=== PATIENT | female | born 1955 | race African-American/Black ===

== ENCOUNTER 2018-12-30 03:42 | Inpatient (IN) | payer OTHER ==
[~2018-12-30] VITALS: Ht 152.4 cm; Wt 111.0 kg
[2018-12-30 03:44] VITALS: BP 225/86
[2018-12-30 04:55] LABS: ABSOLUTE NEUTROPHILS 11.4 thou/uL (1.4-8.2); BASOPHILS 1.1 % (0.0-2.0); EOSINOPHILS 3.8 % (0.0-3.0); HEMATOCRIT 33.1 % (37.0-47.0); HEMOGLOBIN 10.8 gm/dL (12.0-15.0); LYMPHOCYTES 18.9 % (24.0-44.0); MCHC 32.5 % (28.0-37.0); MCV 92.3 fL (80.0-100.0); MONOCYTES 4.1 % (1.0-8.0); PLATELET COUNT 368 thou/uL (150-400); POLYS 72.1 % (36.0-66.0); RBC 3.59 mil/uL (4.20-5.00); RDW 17.8 % (10.5-14.5); WBC 15.7 thou/uL (4.0-11.0)
[2018-12-30 04:56] LABS: CALCIUM 8.7 mg/dL (8.5-10.1); POTASSIUM 4.5 mmol/L (3.5-5.1)
[2018-12-30 04:57] LABS: TROPONIN-I 0.06 ng/mL (<0.06)
[2018-12-30 06:08] VITALS: BP 166/66
[2018-12-30] MEDS ORDERED: LIPITOR80 MG PO (07:33)
[2018-12-30] MEDS ORDERED: DIFLUCAN200 MG PO (07:34)
[2018-12-30] MEDS ORDERED: NEURONTIN 300300 M1 PO (07:34)
[2018-12-30] MEDS ORDERED: LEVEMIR100 UNIT/1 (07:35)
[2018-12-30] MEDS ORDERED: AMLODIPINE BESY10 MG PO (07:36)
[2018-12-30] MEDS ORDERED: NOVOLOG100 UNIT/1 SUBQ (07:37)
[2018-12-30] MEDS ORDERED: TOPROL XL100 MG PO (07:37)
[2018-12-30] MEDS ORDERED: PROTONIX40 M4 PO (07:38)
[2018-12-30] MEDS ORDERED: RENVELA800 MG PO (07:39)
[2018-12-30] MEDS ORDERED: CALCIUM ACETAT667 M2 PO (07:40)
[2018-12-30 07:46] VITALS: BP 161/78
--- NOTE | 2018-12-30 08:34 | EKG ---
[address] [place] [address] ELECTROCARDIOGRAM REPORT Name: DANDRE ESCOTO Room #: 349-I ADM IN M.R.#: [id number] Admission: 12/30/18 Attend Phys: Rahul Dumas MD Discharge: Date of : 59 Report #: [id number] THIS REPORT FOR: //name// [facility] ED Test Date: 2018-12-30 Test Time: 03:49:20 Pat Name: DANDRE ESCOTO Department: Room: 349 Gender: F Domain Architect: LES : 1955 Requested By: Km Yang Order Number: [id number] MD: Mika Lopez Measurements Intervals [place] Rate: 106 P: 50 TX: 148 QRS: 17 QRSD: 85 T: 190 QT: 317 QTc: 421 Interpretive Statements Sinus tachycardia Nonspecific ST segment abnormality No previous ECG available for comparison Electronically Signed On 12-30-2018 8:34:10 CDT by Mika Lopez [email or web address] <ELECTRONICALLY SIGNED> By: Mika Lopez MD, [facility] 12/30/18 0834 0349 0349 Mika Lopez MD, FACC /EPI
--- NOTE | 2018-12-30 09:36 | NUR ---
PT OFF UNIT TO DIALYSIS. PLACE ON NC 8L.
--- NOTE | 2018-12-30 14:02 | NUR ---
PT RETURN FROM DIALYSIS.
[2018-12-30 14:03] VITALS: BP 170/74
[2018-12-30 16:02] VITALS: BP 181/101
--- NOTE | 2018-12-30 16:25 | NUR ---
PT SATING IN THE MID 90S ON ROOM AIR AT THIS TIME.
--- NOTE | 2018-12-30 16:27 | NUR ---
ASSESSMENT: CM REVIEWED CHART AND MET WITH PATIENT AT THE BEDSIDE. PT WAS ADMITTED WITH CHF. PT HAS HX ESRD AND IS ON DIALYSIS HUP-ROIO-LDL AT [facility] LOCATION ([phone]). CM NOTIFIED [facility] THAT PATIENT IS HERE AND THEIR FAX FOR D/C PAPERWORK/FLOWSHEETS IS [phone]. PT REPORTS SHE LIVES IN AN APT ALONE. PT REPORTS ABOUT 3 STEPS TO GET INTO HER APT. PT STATES SHE USES A WHEELCHAIR AND HAS TO HAVE HER SON OR BOYFRIEND HELP GET HER UP THOSE STEPS. PT REPORTS ONCE INSIDE NO STEPS. PT STATES SHE HAS A SHOWER CHAIR. PT REPORTS HER BOYFRIEND HAD BEEN GOING WITH HER TO HER DIALYSIS AND THEY WOULD TAKE [facility] BUT SHE STATES HE IS UNABLE TO GO WITH HER ANY LONGER. PT STATES SHE HAS BEEN HAVING TROUBLE WITH TRANSPORTATION BECAUSE NOONE ELSE CAN TAKE HER OR GO WITH HER AND [facility] IS UNABLE TO HELP HER IN AND OUT OF HER APT. CM CONTACTED [facility] AND THEY STATED THEY ARE NOT ABLE TO LIFT PATIENT OR HELP ASSIST IN AND OUT OF APT. CM ATTEMPTED TO REACH [employer] TO SEE IF PATIENT HAS TRANSPORTATION BENEFITS AND THEY STATE PT IS INELIGIBLE DUE TO HAVING A SPENDDOWN AND WOULD HAVE TO MEET THAT EVERY MONTH IN ORDER TO QUALIFY FOR TRANSPORTATION. CM REACHED OUT TO [facility] TO SEE HOW MUCH THAT WOULD COST PT AND THEY ESTIMATED 120 ROUND TRIP EACH TIME. PT IS UNABLE TO AFFORD THAT. CM REACHED OUT TO [facility] TO SEE IF THEY HAVE ANY RECOMMENDATIONS. CM WILL CONTINUE TO FOLLOW.
[2018-12-30 20:45] VITALS: BP 160/63
[2018-12-31] VITALS (8 sets, daily range): BP systolic 118–162; BP diastolic 68–83
--- NOTE | 2018-12-31 04:41 | NUR ---
PT HAD DIALYSIS YESTERDAY. PT STATES SHE IS FEELING MUCH BETTER. PT STARTED ON NICOTINE PATCH. FOLLOWING POC FOR BP AND ACCU CHECKS. VSS POST NITRO DRIP. PT UP WITH ASSIST X1 AND THE USE OF A WALKER OR WHEEL CHAIR. HOURLY ROUNDING AND CALL LIGHT WITHIN REACH.
[2018-12-31 06:17] LABS: HEMATOCRIT 31.6 % (37.0-47.0); HEMOGLOBIN 10.6 gm/dL (12.0-15.0); MCH 30.5 pg (26.0-34.0); MCHC 33.5 g/dL (28.0-37.0); RBC 3.47 mil/uL (4.20-5.00); RDW 17.9 % (10.5-14.5); WBC 6.3 thou/uL (4.0-11.0)
[2018-12-31 06:31] LABS: CALCIUM 8.7 mg/dL (8.5-10.1); POTASSIUM 4.7 mmol/L (3.5-5.1)
[2018-12-31 06:33] LABS: CREATININE 6.9 mg/dL (0.6-1.0)
[2018-12-31 07:12] LABS: HEPATITIS B SURFACE AG Negative (Negative)
[2018-12-31] MEDS ORDERED: PANTOPRAZOLE SO40 M1 PO (09:41)
--- NOTE | 2018-12-31 11:12 | HC ---
[facility] [address] [place] [address] CONSULTATION Name: DANDRE ESCOTO Room #: 349-I ADM IN M.R.#: [id number] Admission: 12/30/18 Attend Phys: Lily Denis MD Discharge: Date of : 59 Report #: [id number] THIS REPORT FOR: //name// CC: FAM unknown Lily Denis DATE OF SERVICE: 12/30/2018 NEPHROLOGY CONSULTATION ATTENDING PHYSICIAN: Dr. Dumas. REASON FOR CONSULTATION: End-stage renal disease and volume overload. HISTORY OF PRESENT ILLNESS: A 63-year-old patient, chronic dialysis patient at [facility]. She missed dialysis recently, has become fluid overloaded, and has become progressively short of air, called the ambulance and came to the Emergency Room and was admitted. PAST MEDICAL HISTORY: Longstanding end-stage renal disease for 5 years with diabetes and history of previous cardiac stent and COPD. HOME MEDICATIONS: Including amlodipine 10 mg daily, Lipitor 80 mg daily, PhosLo 1 with meals t.i.d., Diflucan as listed, Neurontin 300 mg t.i.d., insulin, metoprolol XL 100 mg daily, pantoprazole 40 mg daily, and Renvela 800 mg with meals t.i.d. SOCIAL HISTORY: Ongoing cigarette smoker. FAMILY HISTORY: Noncontributory. REVIEW OF SYSTEMS: GENERAL: The patient is very sluggish and difficult to get a system review from. She is arousable and can answer some questions and falls back to sleep. EYES: Her vision, she says, is good and has not been affected by the diabetes. ENT: Appears to swallow okay. ENDOCRINE: Positive for the diabetes. RESPIRATORY: Somewhat easily short winded, particularly at this time with some orthopnea. CARDIAC: No current chest pains or palpitations. GASTROINTESTINAL: No nausea, vomiting or diarrhea. GENITOURINARY: No dysuria. NEUROLOGIC: She does tell me that she has peripheral neuropathy. PHYSICAL EXAMINATION: GENERAL: Overweight patient, looking her stated age. [facility] [address] [place] [address] CONSULTATION Name: DANDRE ESCOTO Room #: 349-I ADM IN M.R.#: [id number] Admission: 12/30/18 Attend Phys: Lily Denis MD Discharge: Date of : 59 Report #: [id number] SKIN: Otherwise, unremarkable. SKELETAL: No amputations. HEENT: Extraocular movements appear to be full. No scleral icterus. Hearing and vision grossly intact. Mucous membranes moist. NECK: Supple. I hear no carotid bruits. CHEST: Noisy with rhonchi and crackles. HEART: Regular. ABDOMEN: Soft and nontender. EXTREMITIES: Show no peripheral edema. LABORATORY DATA: Sodium 136, potassium 4.5, chloride 99, bicarbonate 26, creatinine 11, BUN 61, hemoglobin 10.8, white count 15.7. ASSESSMENT AND PLAN: 1. End-stage renal disease with volume overload. She needs dialysis. We will arrange. 2. Chronic obstructive pulmonary disease with cigarette smoking. 3. Diabetes mellitus. 4. History of coronary artery disease with coronary DICTATION ENDS HERE <ELECTRONICALLY SIGNED> By: Trip Berumen MD 12/31/18 1112 0840 0022 Trip Berumen MD /nt
--- NOTE | 2018-12-31 13:43 | NUR ---
Assess due to BMI 47=extreme class III obesity. Admit with pulmonary edema. Hx dm, right AKA, ESRD/dialysis. Good appetite. BG 164-203, requires insulin. Provided dietary education and reinforcement for diabetes/renal/low Na guidelines-see RD education note. Low nutrition risk
--- NOTE | 2018-12-31 14:44 | NUR ---
ON-GOING ASSESSMENT: CM REVIEWED CHART AND MET WITH PATIENT AT THE BEDSIDE. CM DISCUSSED TRANSPORTATION TO DIALYSIS WITH PATIENT. SHE STATES SHE HAS IT ALL FIGURED OUT STATINR HER BOYFRIEND IS NOW ABLE TO GO WITH HER TO THE APPTS AND IF HE IS UNABLE TO MAKE SOME SATRUDAYS THEN SHE HAS OTHER ARRANGEMENTS. CM ALSO PROVIDED PATIENT WITH BACKUP TRANSPORATION SERVICES SUCH [facility], [facility], [facility] AND PROVIDED HER WITH THE CONTACT NUMBERS. CM CONTACTED [facility] TO NOTIFY THEM OF DISCHARGE AND FAXED D/C PAPERWORK WELL FLOWSHEETS. PT REPORTS HER BOYFRIEND IS PROVIDING TRANSPORTATION HOME.
--- NOTE | 2018-12-31 20:16 | NUR ---
PATIENT ALERT AND ORIENTED AND PLEASANT. PATIENT SLEEPING MOST OF MORNING WAITING FOR DECISION ON DIALYSIS. CONTACTED DIALYSIS NURESE AND DETERMINED THAT NO DIALYSIS TODAY AND TO GET DIALYSIS TOMORROW WITH [facility]. PATIENT DISCHARGED THIS EVENING WITH FAMILY IN STABLE CONDITION WITH ALL PERSONAL BELONGINGS AND DISCHARGE ORDERS VIA WHEELCHAIR.
== END 2018-12-31 17:02 | disposition home or self-care (01) | DRG 291 ==
LOC: ER 03:42 → EROBS 04:54 → 3W 04:54
PROVIDERS: Emergency Medicine; Internal Medicine Nephrology; ADMIT Internal Medicine
PROC: 5A1D70Z Performance of Urinary Filtration, Intermittent, Less than 6 Hours Per Day (ICD-10-PCS; principal; 2018-12-30)
DX: I13.2 Hypertensive heart and chronic kidney disease with heart failure and with stage 5 chronic kidney disease, or end stage renal disease (principal); N18.6 End stage renal disease; I50.33 Acute on chronic diastolic (congestive) heart failure; E87.70 Fluid overload, unspecified; I50.9 Heart failure, unspecified; E11.22 Type 2 diabetes mellitus with diabetic chronic kidney disease; J44.9 Chronic obstructive pulmonary disease, unspecified; F17.210 Nicotine dependence, cigarettes, uncomplicated; I25.10 Atherosclerotic heart disease of native coronary artery without angina pectoris; Z91.040 Latex allergy status; Z95.5 Presence of coronary angioplasty implant and graft; Z89.611 Acquired absence of right leg above knee; Z88.8 Allergy status to other drugs, medicaments and biological substances; Z88.6 Allergy status to analgesic agent; Z91.013 Allergy to seafood
CPT/HCPCS: 10879; 32100

== ENCOUNTER 2019-04-19 23:33 | Inpatient (IN) | payer OTHER ==
[~2019-04-19] VITALS: Ht 152.4 cm; Wt 105.7 kg
--- NOTE | ~2019-04-19 | HC ---
[facility] [address] [place] [address] CONSULTATION Name: DANDRE ESCOTO Room #: 237-P [facility] IN M.R.#: [id number] Admission: 04/20/19 Attend Phys: Galindo Aaron Discharge: Date of : 59 Report #: [id number] THIS REPORT FOR: //name// CC: FAM unknown Galindo Aaron NEPHROLOGY CONSULTATION REASON FOR ADMISSION AND CONSULTATION: End-stage renal disease with pulmonary edema. HISTORY OF PRESENT ILLNESS: This is a 63-year-old female with end-stage renal disease due to diabetes and hypertension. She has been on chronic hemodialysis for about 5 years. She presented this evening to the Emergency Room with progressive dyspnea. With that, she has had some cough. Upon presentation to the Emergency Room, she is hypoxemic and hypercapnic. Chest x-ray shows pulmonary edema. She has been placed on BiPAP. We are asked to see her for emergent dialysis. In talking to the patient, she normally dialyzes thrice weekly at [facility], which I believe is a [facility] unit. This was a holiday week with giving, so she dialyzed on Saturday, Saturday and Saturday. Saturday was yesterday and she says she went to dialysis. Her dialysis was cut short by half an hour or 45 minutes due to dyspnea. She says she got about a liter and a half off with dialysis. Overnight then, she has been more dyspneic. She says this has actually been going on the last 3 nights. It does not sound like she has been getting a whole lot of extra fluid, but it is very difficult to understand her with the BiPAP. She normally dialyzes using a left upper arm fistula. The patient was admitted one prior time to this hospital in 12/2018 with similar problems with pulmonary edema. PAST MEDICAL HISTORY: Longstanding diabetes and hypertension. Chronic hemodialysis as noted above. She has a history of heart disease with previous coronary stents. She is continuing to smoke and has some COPD. She has had a right fuluw-xvz-aqhw amputation and she thinks it has been about 5 years ago. MEDICATIONS: Include amlodipine 10 mg daily, aspirin 81 mg daily, atorvastatin 80 mg daily, calcium acetate 667 mg 2 p.o. t.i.d. with meals as a phosphate binder, gabapentin 300 mg t.i.d., Levemir and NovoLog, metoprolol 50 mg daily, pantoprazole 40 mg daily. She is also listed as being on sevelamer, so I do not know if she is on sevelamer or the PhosLo. ALLERGIES: LISTED TO IBUPROFEN AND NAPROXEN, ALSO HAVING A LATEX ALLERGY. SOCIAL HISTORY: The patient is , lives in [facility]. She continues to be an everyday smoker. [facility] [address] [place] [address] CONSULTATION Name: DANDRE ESCOTO Room #: 237-P [facility] IN M.R.#: [id number] Admission: 04/20/19 Attend Phys: Galindo Aaron Discharge: Date of : 59 Report #: [id number] REVIEW OF SYSTEMS: Dyspnea, worsening over the past several nights, some orthopnea and PND. She denies nausea or vomiting. No current chest pain. She is unaware of fevers, chills, or sweats. PHYSICAL EXAMINATION: GENERAL: Obese, short statured female on BiPAP, very dyspneic. VITAL SIGNS: Blood pressure 150/59, heart rate 105 and regular, temperature 99.2 on original presentation. She is oxygenating to 98% on the BiPAP. HEENT: Shows pupils are equal and reactive. BiPAP mask is in place, so cannot evaluate her oral mucosa. NECK: Large. I cannot tell that there is JVD. CHEST: Shows bilateral rales with poor excursion. HEART: Has a regular tachycardia and a sinus rhythm on monitor. ABDOMEN: Obese, protuberant, bowel sounds present, soft, and nontender. EXTREMITIES: She has a right jnply-two-ziko amputation, stump is clear. She has no left lower extremity edema. Left arm has a left upper arm fistula in place, which is pulsatile. IMAGING: Chest x-ray shows pulmonary edema with diffuse 5 lobe infiltrates. LABORATORY DATA: Sodium 138, potassium 4.0, chloride 96, bicarbonate 28, BUN 40, creatinine 9.5, glucose 430, calcium 8.6, total protein 8.4, albumin 3.3. Troponin less than 0.06. White count 14.5, hemoglobin 10.3, hematocrit 32.0, platelets 441,000. Differential on the white count 51 neutrophils, 38 lymphs, 6 monos, 4 eosinophils, 1 basophil. Blood gas pH 7.31, pCO2 of 53.7, pO2 of 72.7 that is on 80% per BiPAP. Lactate 3.56, carboxyhemoglobin 3.5. ASSESSMENT: 1. End-stage renal disease with respiratory failure, pulmonary edema, hypoxemia, and hypercapnia. We will emergently get her on dialysis and try to get off at least 3 liters of volume and see if we can get her breathing better. We may have to adjust that further. During her one prior stay here about 3 or 4 months ago, she responded to one single dialysis and then was discharged to home. 2. Longstanding diabetes, poor control with a sugar over 400. 3. Hypertension, currently moderately controlled. 4. Coronary artery disease by history. 5. Chronic obstructive pulmonary disease with continued smoking disorder. 6. Prior right acxuj-lqc-hjnx amputation. 7. We will keep an eye out to see if there is evidence of any infection. She had very low-grade fever and had a mild leukocytosis without left shift. She is not exhibiting infectious symptoms, but we will certainly keep an eye out for that. PLAN: We will get her admitted to her room where we can do dialysis. We will do dialysis overnight. We will shoot for a 3-hour run with 3 liter [facility] [address] [place] [address] CONSULTATION Name: DANDRE ESCOTO Room #: 237-P [facility] IN M.R.#: [id number] Admission: 04/20/19 Attend Phys: Galindo Aaron Discharge: Date of : 59 Report #: [id number] ultrafiltration and a 3 potassium dialysate. We will monitor her course and determine additional dialysis after that. By: 0049 0113 Kurt Nunez MD /nt
[~2019-04-19 23:33] MED LIST: AMLODIPINE BESY10 MG PO; CALCIUM ACETAT667 M2 PO; DIFLUCAN200 MG PO; LEVEMIR100 UNIT/1; LIPITOR80 MG PO; NEURONTIN 300300 M1 PO; NOVOLOG100 UNIT/1 SUBQ; PANTOPRAZOLE SO40 M1 PO; PROTONIX40 M4 PO; RENVELA800 MG PO; TOPROL XL100 MG PO
[2019-04-19 23:36] VITALS: BP 136/71
[2019-04-19 23:59] LABS: ABSOLUTE NEUTROPHILS 7.4 thou/uL (1.4-8.2); BASOPHILS 1.1 % (0.0-2.0); HEMOGLOBIN 10.3 gm/dL (12.0-15.0); LYMPHOCYTES 38.2 % (24.0-44.0); MCH 29.3 pg (26.0-34.0); MCHC 32.2 g/dL (28.0-37.0); MCV 91.3 fL (80.0-100.0); MONOCYTES 5.6 % (1.0-8.0); PLATELET COUNT 441 thou/uL (150-400); POLYS 51.1 % (36.0-66.0); RDW 18.3 % (10.5-14.5); WBC 14.5 thou/uL (4.0-11.0)
[2019-04-20] VITALS (73 sets, daily range): BP systolic 89–198; BP diastolic 37–94
[2019-04-20 00:03] LABS: ANION GAP 14 mmol/L (7-16); BUN 40 mg/dL (7-18); CALCIUM 8.6 mg/dL (8.5-10.1); CHLORIDE 96 mmol/L (98-107); CO2 28 mmol/L (21-32); CREATININE 9.5 mg/dL (0.6-1.0); GLUCOSE 430 mg/dL (74-106); SODIUM 138 mmol/L (136-145)
[2019-04-20 00:06] LABS: BE(vivo) -0.6 mmol/L (-2 to +3); HCO3 26.2 mmol/L (22.0-26.0); PCO2 53.7 mmHg (35.0-45.0); PO2 72.7 mmHg (80.0-100.0); pH 7.307 (7.360-7.450)
[2019-04-20] MEDS ORDERED: ASA81BEC PO (00:07)
[2019-04-20 00:11] LABS: APTT 25.2 Seconds (24.5-32.8); PROTIME 10.2 Seconds (9.3-11.4)
[2019-04-20 00:13] LABS: ALBUMIN 3.3 g/dL (3.4-5.0); MAGNESIUM 2.1 mg/dL (1.8-2.4); SGOT 25 U/L (15-37); SGPT 25 U/L (30-65); TOTAL BILIRUBIN 0.2 mg/dL (<0.1-1.0); TOTAL PROTEIN 8.4 g/dL (6.4-8.2); TROPONIN-I <0.06 ng/mL (<0.06)
--- NOTE | 2019-04-20 06:00 | NUR ---
REMAINS INTUBATED AND SEDATED. PROPOFOL AT 30 MCG AND VERSED AT 5 MG FOLLOWS NO COMMANDS WITH SEDATION VACATION. 600 CC UO THIS SHIFT. SINUS RHYTHM. WILL CONT TO MONITOR CLOSELY.
--- NOTE | 2019-04-20 06:00 | NUR ---
63 Y/O PT ADMITTED TO ICU VIA CART FROM ER AT 0146 EMERGENT DIALYSIS GIVEN 2.5 LITERS OULLED OFF, LUNGS COARSE BILAT. AWAKE AND ALERT. WILL CONT TO MONITOR.
[2019-04-20 06:22] LABS: CALCIUM 8.8 mg/dL (8.5-10.1)
[2019-04-20 06:26] LABS: HEMATOCRIT 29.4 % (37.0-47.0); HEMOGLOBIN 9.5 gm/dL (12.0-15.0); MCH 29.4 pg (26.0-34.0); MCHC 32.5 g/dL (28.0-37.0); MCV 90.4 fL (80.0-100.0); RBC 3.25 mil/uL (4.20-5.00); RDW 18.4 % (10.5-14.5); WBC 11.8 thou/uL (4.0-11.0)
[2019-04-20 06:34] LABS: CREATININE 4.2 mg/dL (0.6-1.0)
--- NOTE | 2019-04-20 08:14 | EKG ---
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: HOLLY : 1955 Requested By: Juan Rodríguez Order Number: [id number] MD: Leopoldo Peck Measurements Intervals [place] Rate: 114 P: 45 AL: 136 QRS: 28 QRSD: 88 T: 227 QT: 345 QTc: 476 Interpretive Statements Sinus tachycardia Nonspecific repol abnormality, diffuse leads Baseline wander in lead(s) V6 Compared to ECG 12/30/2018 03:49:20 Early repolarization now present ST (T wave) deviation no longer present Electronically Signed On 04-20-2019 8:14:12 E COMMERCE ANALYST by Leopoldo Peck [email or web address] <ELECTRONICALLY SIGNED> By: Leopoldo Peck MD 04/20/19 0814 2338 2338 Leopoldo Peck MD /EPI
--- NOTE | 2019-04-20 13:29 | 2DMMODE ---
[facility] [address] [place] [address] 2 D/M-MODE ECHOCARDIOGRAM Name: DANDRE ESCOTO Room #: 237-P ADM IN M.R.#: [id number] Admission: 04/20/19 Attend Phys: Galindo [place] Discharge: Date of : 59 Report #: [id number] THIS REPORT FOR: //name// APPROVED REPORT Study performed: 04/20/2019 08:27:10 EXAM: Comprehensive 2D, Doppler, and color-flow Echocardiogram Patient Location: Bedside Room #: [facility] Status: routine BSA: 2.24 HR: 88 bpm BP: 131/49 mmHg Rhythm: NSR Other Information Study Quality: Adequate Risk Factors: Cardiac Risk Factors: HTN, Smoking, DM Indications Congestive Heart Failure Dyspnea CAD ESRD 2D Dimensions IVSd: 14.92 (7-11mm) LVOT Diam: 18.00 (18-24mm) LVDd: 42.85 mm PWd: 14.70 (7-11mm) Ascending Ao: 27.93 (22-36mm) LVDs: 32.32 (25-40mm) Aortic Root: 26.05 mm LV Single Plane 4CH: 52.17 % Volumes Left Atrial Volume (Systole) Single Plane 4CH: 53.76 mL Single Plane 2CH: 48.60 mL LA ESV Index: 25.00 mL/m2 Aortic Valve AoV Peak Davi.: 2.30 m/s AO Peak Gr.: 21.24 mmHg LVOT Max P.13 mmHg AO Mean Gr.: 12.31 mmHg LVOT Mean P.47 mmHg [facility] [address] [place] [address] 2 D/M-MODE ECHOCARDIOGRAM Name: DANDRE ESCOTO Room #: 237-P [facility] IN ..#: [id number] Admission: 04/20/19 Attend Phys: Galindo [place] Discharge: Date of : 59 Report #: [id number] AO V2 Mean: 1.72 m/s LVOT Max V: 1.06 m/s AO V2 VTI: 46.72 cm LVOT Mean V: 0.74 m/s UMESH (VTI): 1.32 cm2 LVOT V1 VTI: 23.48 cm UMESH Vmax: 1.20 cm2 SV (LVOT): 61.69 mL Mitral Valve E/A Ratio: 1.1 MV Decel. Time: 177.10 ms MV E Max Davi.: 1.22 m/s MV A Davi.: 1.09 m/s MV PHT: 51.36 ms IVRT: 76.12 ms TDI E/Lateral E': 20.33 E/Medial E': 24.40 Medial E' Davi.: 0.05 m/s Lateral E' Davi.: 0.06 m/s Pulmonary Valve PV Peak Davi.: 0.95 m/s PV Peak Gr.: 3.62 mmHg Pulmonary Vein P Vein S: 0.42 m/s P Vein A: 0.34 m/s P Vein D: 0.33 m/s P Vein A Dur.: 86.5 msec P Vein S/D Ratio: 1.27 Tricuspid Valve TR Peak Davi.: 3.14 m/s RAP Estimate: 10.00 mmHg TR Peak Gr.: 39.38 mmHg PA Pressure: 49.00 mmHg Left Ventricle The left ventricle is normal size. There is normal LV segmental wall motion. Moderate concentric left ventricular hypertrophy. The left ventricular systolic function is normal. The left ventricular ejection fraction is within the normal range. LVEF is 50-55%. Moderate diastolic dysfunction is present (pseudonormal filling). Right Ventricle The right ventricle is normal size. The right ventricular systolic function is normal. Atria The left atrium size is normal. The right atrium size is [facility] [address] [place] [address] 2 D/M-MODE ECHOCARDIOGRAM Name: DANDRE ESCOTO Room #: 237-P [facility] IN [facility].#: [id number] Admission: 04/20/19 Attend Phys: Galindo [place] Discharge: Date of : 59 Report #: [id number] normal. Aortic Valve Aortic valve is calcified. No aortic regurgitation is present. The maximum aortic valve pressure gradient is 21 mmHg and the mean pressure gradient is 12 mmHg. The calculated aortic valva area is 1.3 cm2. Moderate aortic stenosis. Mitral Valve There is mitral annular calcification. Moderate mitral regurgitation. No evidence of mitral valve stenosis. Tricuspid Valve The tricuspid valve is normal in structure. Mild to moderate tricuspid regurgitation. Pulmonary artery pressure is 49 mmHg. Pulmonic Valve The pulmonary valve is normal in structure. Mild pulmonic regurgitation. Great Vessels The aortic root is normal in size. The ascending aorta is normal in size. IVC is normal in size and collapses <50% with inspiration. Pericardium There is no pericardial effusion. <Conclusion> The left ventricle is normal size. LVEF is 50-55%. Aortic valve is calcified. The maximum aortic valve pressure gradient is 21 mmHg and the mean pressure gradient is 12 mmHg. The calculated aortic valva area is 1.3 cm2. Moderate aortic stenosis. There is mitral annular calcification. Moderate mitral regurgitation. The tricuspid valve is normal in structure. Mild to moderate tricuspid regurgitation. Pulmonary artery pressure is 49 mmHg. The pulmonary valve [place] [address] 2 D/M-MODE ECHOCARDIOGRAM Name: DANDRE ESCOTO Room #: 237-P [facility] IN M.R.#: [id number] Admission: 04/20/19 Attend Phys: Galindo [place] Discharge: Date of : 59 Report #: [id number] Mild pulmonic regurgitation. There is no pericardial effusion. <ELECTRONICALLY SIGNED> By: Sergio Hdez MD 04/20/19 1329 1329 Sergio Hdez MD /INF
--- NOTE | 2019-04-20 16:50 | NUR ---
INITIAL ASSESSMENT: Pt evaluated for d/c planning needs. Reviewed chart and spoke with nurse and pt. Pt is alert and oriented. Pt states she lives alone in apartment and was independent with ADL's prior to admission. Pt has w/c and walker. Pt currently has a $300 spenddown on her Medicaid, which she does not meet on a regular basis. Pt has dialysis at [facility]. Pt states she uses [facility] for transport. Pt is interested in MOW and also caregiver services at home. [facility] with [facility] and will notify them when pt is d/c from hospital. Will remain available to assist as needed.
[2019-04-20] MEDS ORDERED: TOPROL XL50 MG PO (16:57)
[2019-04-20] MEDS ORDERED: CENTRUM SILVER1 EAC4 PO (17:00)
[2019-04-20] MEDS ORDERED: NITROSTAT0.4 M1 SUBLING (17:15)
[2019-04-20] MEDS ORDERED: MELATONIN PO (17:18)
[2019-04-20] MEDS ORDERED: HUMALOG100 UNIT/1 SUBQ (17:23)
[2019-04-20] MEDS ORDERED: LEVEMIR100 UNIT/1 SUBQ (17:24)
--- NOTE | 2019-04-20 18:45 | NUR ---
PHYSICIAN UPDATED THROUGHOUT THE DAY ON PATIENTS PROGRESS AND GOALS. PLAN OF CARE IS TO DECREASE OXYGEN NEEDS, INCREASE ACTIVITY, DIALYZE IN AM.
[2019-04-21] VITALS (42 sets, daily range): BP systolic 99–169; BP diastolic 37–83
[2019-04-21 00:08] LABS: GLYCOHEMOGLOBIN (HGB A1C) 7.8 % (4.8-5.6)
--- NOTE | 2019-04-21 06:24 | NUR ---
Received report and assumed patient care. Patient is AAOx4 and noted to be on 4 L NC with NSR showing on the monitor. Patient's VS remained stable and no distress was noted during this shift. Patient complained of a headache 8/10 and Tylenol and later Morphine was given to help with the pain. Patient had no further complaints. Patient is progressing toward goal.
[2019-04-21 08:07] LABS: HEP B SURFACE Ab(ANTI-HBS Non Reactive (()); HEPATITIS B SURFACE AG Negative (Negative)
--- NOTE | 2019-04-21 09:35 | NUR ---
Nutrition: Pt currently only on renal diet, consider add carb controlled due to hx uncontrolled Dm.
--- NOTE | 2019-04-21 16:27 | NUR ---
RECEIVED PT'S CARE AROUND 1600; PT. A0X4; ABLE TO TRANSFER FROM WHEELCHAIR TO BED WITH 3 PEOPLE ASSISTANCE; ST. USING A WHEELCHAIR AT HOME TO AMBULATE; EDUCATED ABOUT FALL PRECAUTIONS; ST. UNDERSTANDING; C/O HEADACHE; ST. "TYLENOL" DID NOT HELP FOR HER PAIN; BP MEDICATION GIVEN; EDUCATED ABOUT INTERACTION BETWEEN BP MEDICATION & IV MORPHINE; EDUCATED ABOUT POSSIBLE HEADACHE DUE TO LOW BP BEFORE ARRIVING AT FLOOR & ELEVATED BP WHEN ARRIVING AT FLOOR; HAD DIALYSIS EARLIER; ST. UNDERSTANDING; SR ON THE MONITOR; ASSESSMENT CHARGED; FOLLOWING POC; WILL PASS ON REPORT;
--- NOTE | 2019-04-22 01:28 | NUR ---
PT SITTING UP IN BED UPON ARRIVAL TO SHIFT. PT DID NOT HAVE ON O2 PER NC. PT ENCOUARAGED TO PLACE ON. PT WAS SHARP TONED AND POOR EYE CONTACT DURING INTERACTION. PT ASKED FOR ASSISTANCE TO CALL BOYFRIEND AND PROVIDED. NURSE RETURNED FOR ASSESSMENT, PT SMILING RESTING IN BED, COMMENTED ON HOW FUN NURSES LAUGH WAS AND DID NURSE HAVE . PT COMPLIANT WITH ASSESSMENT, GOOD EYE CONTACT, SMILING, O2 PER NC. PTS BROTHER CALLED AND ASKED FOR PT TO HAVE A SNACK AND JUICE, ALSO ASKED TO SPEAK WITH NURSE. WHEN PT PROVIDED SNACK, SHE DECLINED STATING IT WAS WHAT HER BROTHER WANTED FOR HER. PT ALSO STATED NURSE DID NOT NEED TO CALL BROTHER. PT COMPLIANT WITH LANTUS BUT DECLINED SLIDING SCALE INSULIN. PT DECLINED HS BIPAP TO RT, 99% ON RA. PT C/O L HAND DISCOMFORT AND PRN TYLENOL PROVIDED WITH RELIEF. PT CALLS FOR ASSIST FOR REPOSITIONING AND TRANSFERS, R AKA. PT HAD DIALYSIS TODAY HX [facility]. PT HAS PLACED CALL LIGHT ON AND WHEN STAFF ENTER SHE STATES SHE WAS NOT NEEDING ASSISTANCE.
[2019-04-22 04:34] VITALS: BP 191/71
[2019-04-22 04:43] VITALS: BP 180/80
--- NOTE | 2019-04-22 04:48 | NUR ---
BP ELEVATED AUTO DESIGN DETAILER NOTIFIED, NEW ORDERS WILL BE PLACED AND GIVEN.
--- NOTE | 2019-04-22 05:25 | NUR ---
PT C/O NAUSEA PROVIDED AM MED AND PRN FOR NAUSEA. PT REQUESTED DRINK TO SETTLE STOMACH.
--- NOTE | 2019-04-22 06:08 | NUR ---
RECHECK BP AFTER PRN, REMAINS ELEVATED AM BP MEDS PROVIDED.
[2019-04-22 07:31] VITALS: BP 152/67
[2019-04-22] MEDS ORDERED: METOPROLOL SUCC50 MG PO (10:01)
[2019-04-22 10:58] VITALS: BP 152/67
--- NOTE | 2019-04-22 11:54 | NUR ---
PT CARE ASSUMED APPROX 0700. ASSESSMENT CHARTED. PT DENIES PAIN AND SOA. VSS. UP TO CHAIR WITH MAX ASSIST TO STAND PIVOT. PT DISCHARGED AT THIS TIME. DISCHARGE PAPERWORK/EDUCATION REVIEWED WITH AND PT'S SON. BOTH DENY QUESTIONS AND CONCERNS REGARDING POST HOSPITAL CARE. IV OUT, TELE BOX OFF. HOSPITAL TRANSPORTATION ESCORTED PT OUT.
--- NOTE | 2019-04-22 13:38 | NUR ---
DISCHARGE ORDERS COMPLETED. PATIENT DISCHARGING TO HOME. DISCHARGE ORDERS AND DIALYSIS CLINICAL INFORMATION FA[facility]ED TO [facility]. [facility] AWARE OF PATIENTS DISCHARGE TO HOME TODAY, VERIFIED CLINICALS RECEIVED.
--- NOTE | 2019-04-22 16:06 | NUR ---
DISCHARGE NOTE: SW reviewed chart and spoke with nursing and attending physician. Pt was transferred to from and is medically stable for discharge home today. senior media planner to fax discharge orders/summary and dialysis flow sheets to [facility] dialysis clinic. Pt to resume regular outpatient dialysis tomorrow. No additional SW needs identified, but is available to assist should needs arise.
== END 2019-04-22 11:48 | disposition home or self-care (01) | DRG 291 ==
LOC: ER 23:33 → ICU 04-20 00:53 → EROBS 04-20 00:53 → ICU 04-20 01:35 → 3W 04-21 15:35 → ENTRNSPT 04-22 11:38 → EDTRNSPTSTS 04-22 11:41 → 3W 04-22 11:48
PROVIDERS: Emergency Medicine; Internal Medicine Nephrology; Nurse Practitioner; ADMIT Hospitalist
PROC: 5A1D70Z Performance of Urinary Filtration, Intermittent, Less than 6 Hours Per Day (ICD-10-PCS; principal; 2019-04-20)
PROC: 5A09357 Assistance with Respiratory Ventilation, Less than 24 Consecutive Hours, Continuous Positive Airway Pressure (ICD-10-PCS; 2019-04-20)
PROC: 5A09357 Assistance with Respiratory Ventilation, Less than 24 Consecutive Hours, Continuous Positive Airway Pressure (ICD-10-PCS; 2019-04-21)
DX: I13.0 Hypertensive heart and chronic kidney disease with heart failure and stage 1 through stage 4 chronic kidney disease, or unspecified chronic kidney disease (principal); N18.6 End stage renal disease; J96.01 Acute respiratory failure with hypoxia; J96.02 Acute respiratory failure with hypercapnia; E11.22 Type 2 diabetes mellitus with diabetic chronic kidney disease; J44.9 Chronic obstructive pulmonary disease, unspecified; I25.10 Atherosclerotic heart disease of native coronary artery without angina pectoris; E78.5 Hyperlipidemia, unspecified; G47.30 Sleep apnea, unspecified; I50.9 Heart failure, unspecified; F17.210 Nicotine dependence, cigarettes, uncomplicated; D72.829 Elevated white blood cell count, unspecified; E11.65 Type 2 diabetes mellitus with hyperglycemia; I08.3 Combined rheumatic disorders of mitral, aortic and tricuspid valves; Z99.2 Dependence on renal dialysis; Z79.4 Long term (current) use of insulin; Z89.511 Acquired absence of right leg below knee; Z79.899 Other long term (current) drug therapy; Z79.84 Long term (current) use of oral hypoglycemic drugs; Z95.5 Presence of coronary angioplasty implant and graft; Z88.8 Allergy status to other drugs, medicaments and biological substances; Z91.040 Latex allergy status; Z91.013 Allergy to seafood
CPT/HCPCS: 10078; 10203; 10779; 10879; 32100